=== PATIENT | female | born 1975 | race Asian ===

== ENCOUNTER → 2016-07-26 | Outpatient (CLI) | payer BC ==
[~2016-07-26] MED LIST: IRON SUPPLEMENT1 TAB PO
--- NOTE | ~2016-07-26 | MY11 ---
[facility] A Service of [facility] RADIOLOGY TEXT RESULTS PATIENT: PAUL GRULLON LOCATION: [facility] : 73 UNIT #: [id number] AGE: [address]: Gudelia Lopez MD SEX: F ORDER DR: [id number] [facility] [address] [place], [place] [address] [id number] O MR#: [id number] Acc #: [id number] NAME: PAUL GRULLON : 1975 SEX: F STUDY DATE/TIME: 07/26/2016 11:10 UNIT: [facility] ROOM: STUDY DESCRIPTION: MY Mammogram Screening Dig Teodoro Attending Physician: Gudelia Lopez M.D. Referring Physician: Gudelia Lopez M.D. Ordering Physician: Gudelia Lopez M.D. Primary Care Physician: Gudelia Lopez M.D. MEDICAL IMAGING REPORT This report is preliminary unless electronic signature is present EXAM Digital screening mammograms 07/26/2016. [facility] HISTORY 40-year-old woman baseline mammogram. No risk elevation. COMPARISON None. Digital imaging of each breast was completed utilizing screening protocol. Review includes FDA-approved CAD device. Breast parenchyma is mildly heterogeneous with scattered fibroglandular opacities in each breast. There are however single nodules identified in each breast. These have characteristics of cysts but warrant additional imaging. On the left, the circumscribed nodule measures approximately 7 mm projecting centrally middle third. On the right, there is a slightly larger lobulated circumscribed nodule measuring 1.4 cm projecting upper central location middle third. This may be two adjacent cysts or a lobulated cyst. Fibroadenomas cannot be excluded at this time. Additional imaging to include spot compression views along with true lateral projections and targeted ultrasound recommended as this is the patient's baseline exam. IMPRESSION Incomplete mammographic evaluation. Additional bilateral breast imaging is indicated see full report with recommendations. Patients over the age of 40 are entered into a reminder system with target due date for the next mammogram. A result letter will also be sent to the patient. [facility]. [facility] A Service of [facility] RADIOLOGY TEXT RESULTS PATIENT: PAUL GRULLON LOCATION: [facility] : 73 UNIT #: [id number] AGE: [address]: Gudelia Lopez MD SEX: F ORDER DR: BIRADS: 0 - Incomplete. Needs additional imaging evaluation. Dictated by... Cecil Hidalgo M.D. THIS IS AN ELECTRONICALLY VERIFIED REPORT Cecil Hidalgo M.D. at 07/26/2016 3:17 PM ENZO/dylan TD: 07/26/2016 14:53 JOB #: [id number] MEDICAL IMAGING REPORT COPY
== END | disposition home or self-care (01) ==
LOC: CWCC 10:51
DX: Z12.31 Encounter for screening mammogram for malignant neoplasm of breast (principal); R92.8 Other abnormal and inconclusive findings on diagnostic imaging of breast
CPT/HCPCS: G0202

== ENCOUNTER → 2016-10-26 | Outpatient (CLI) | payer BC ==
--- NOTE | ~2016-10-26 | US17 ---
[facility] A Service of [facility] RADIOLOGY TEXT RESULTS PATIENT: PAUL GRULLON LOCATION: [facility] : 73 UNIT #: [id number] AGE: [address]: Gudelia Lopez MD SEX: F ORDER DR: [id number] [facility] [address] [place], [place] [address] [id number] O MR#: [id number] Acc #: [id number] NAME: PAUL GRULLON : 1975 SEX: F STUDY DATE/TIME: 10/26/2016 10:29 UNIT: [facility] ROOM: STUDY DESCRIPTION: US Breast Bilateral Attending Physician: Gudelia Lopez M.D. Referring Physician: Gudelia Lopez M.D. Ordering Physician: Gudelia Lopez M.D. Primary Care Physician: Gudelia Lopez M.D. MEDICAL IMAGING REPORT This report is preliminary unless electronic signature is present EXAM Bilateral diagnostic breast ultrasound. DATE 10/26/2016 HISTORY Nodular densities in each breast on previous screening mammogram for which additional diagnostic imaging was recommend. COMPARISON Mild screening mammogram 07/26/2016, bilateral digital diagnostic mammogram 10/26/2016. FINDINGS Targeted sonographic imaging was obtained in both the right and left breast. Please refer to the diagnostic mammogram report from the same day for additional findings and recommendations. IMPRESSION Please refer to the diagnostic mammogram report for full description of mammographic and sonographic findings and recommendations. BIRADS: 2 Benign finding. Dictated by... Willow Vallejo M.D. THIS IS AN ELECTRONICALLY VERIFIED REPORT Willow Vallejo M.D. at 10/27/2016 8:[address] [facility]/duc TD: 10/26/2016 13:27 [facility] A Service of [facility] RADIOLOGY TEXT RESULTS PATIENT: PAUL GRULLON LOCATION: [facility] : 73 UNIT #: [id number] AGE: [address]: Gudelia Lopez MD SEX: F ORDER DR: JOB #: [id number] MEDICAL IMAGING REPORT Page 1 of 1 COPY
--- NOTE | ~2016-10-26 | MY26 ---
[facility] A Service of [facility] RADIOLOGY TEXT RESULTS PATIENT: PAUL GRULLON LOCATION: [facility] : 73 UNIT #: [id number] AGE: [address]: Gudelia Lopez MD SEX: F ORDER DR: [id number] [facility] [address] [place], [place] [address] [id number] O MR#: [id number] Acc #: [id number] NAME: PAUL GRULLON : 1975 SEX: F STUDY DATE/TIME: 10/26/2016 9:55 UNIT: [facility] ROOM: STUDY DESCRIPTION: [facility] DIAGNOSTIC W/ CAD BILAT Attending Physician: Gudelia Lopez M.D. Referring Physician: Gudelia Lopez M.D. Ordering Physician: Gudelia Lopez M.D. Primary Care Physician: Gudelia Lopez M.D. MEDICAL IMAGING REPORT This report is preliminary unless electronic signature is present EXAM Bilateral digital diagnostic mammogram with CAD, 11/12/2016 HISTORY 40-year-old female with nodular densities in each breast on previous screening mammogram for which additional diagnostic imaging was recommended. COMPARISON Bilateral screening mammogram, 07/26/2016. FINDINGS True ML view was obtained of each breast utilizing digital technique and reviewed with an FDA-approved CAD device. Spot compression views were obtained of each breast in the CC and MLO plane. An approximately 1.0 cm nodular density in the upper outer right breast becomes more conspicuous upon spot compression, particularly in the CC plane. A less than 1.0 cm nodular density in the lateral hemisphere of the left breast on the CC view also becomes more conspicuous on spot compression, less well identified in the MLO view. Targeted sonographic imaging was performed of the upper outer quadrant of the right breast by the locomotive crane engineer. At the 10 o'clock axis, a benign simple cyst measures 1.0 cm, and corresponds to mammographic finding. Targeted sonographic imaging was performed of the left breast both by locomotive crane engineer and by myself. At the 4 o'clock axis central third of the left breast, a 3.0 mm simple cyst is seen, corresponding to mammographic finding. No suspicious solid nodule is seen within either breast. No architectural distortion or microcalcification is identified. IMPRESSION 1. Simple cysts are demonstrated within each breast on sonography, corresponding to the mammographic finding. There are no features STS. [facility] A Service of [facility] & [facility] RADIOLOGY TEXT RESULTS PATIENT: PAUL GRULLON LOCATION: [facility] : 73 UNIT #: [id number] AGE: [address]: Gudelia Lopez MD SEX: F ORDER DR: suspicious for malignancy on today's examination. The patient is advised to return for routine bilateral screening mammogram in one year. 2. The findings and recommendations were discussed with the patient, via an bottle hop, in the radiology department today. Patients over the age of 40 are entered into a reminder system with target due date for the next mammogram. A result letter will also be sent to the patient. BIRADS: 2 Benign Finding Dictated by... Willow Vallejo M.D. THIS IS AN ELECTRONICALLY VERIFIED REPORT Willow Vallejo M.D. at 10/27/2016 8:59 AM [place] TD: 10/26/2016 13:12 JOB #: [id number] MEDICAL IMAGING REPORT Page 1 of 1 COPY
== END | disposition home or self-care (01) ==
LOC: CMAM 09:25
DX: R92.8 Other abnormal and inconclusive findings on diagnostic imaging of breast (principal); N60.11 Diffuse cystic mastopathy of right breast; N60.12 Diffuse cystic mastopathy of left breast
CPT/HCPCS: 76641; G0204